=== PATIENT | female | born 1995 | race Caucasian/White ===

== ENCOUNTER 2020-10-21 16:05 | Emergency (ER) | payer BC, SELFPAY ==
--- NOTE | 2020-10-21 16:23 | ED.URI ---
HPI - URI/Sore Throat General Chief Complaint: Upper Respiratory Infection Stated Complaint: FLI LIKE SYMPTOMS History of Present Illness HPI Narrative: This is a 25-year-old female comes in complaining of a sore throat cough not feeling well and inability to sleep. Patient states that she has costochondritis so she is used to chest pain she has been having some pain when she is taking deep breaths. Patient denies any asthma or shortness of breath. Patient states that she took some NyQuil yesterday Related Data Home Medications Medication Instructions Recorded Confirmed etonogestrel [Nexplanon] 1 implant SUBDERMAL ONCE 10/21/20 10/21/20 Allergies Allergy/AdvReac Type Severity Reaction Status Date / Time ketorolac Allergy Intermediate Rash Verified 10/21/20 16:43 acetaminophen Allergy Mild Hives Verified 10/21/20 16:43 hydrocodone Allergy Mild Hives Verified 10/21/20 16:43 morphine Allergy Mild HIVES Verified 10/21/20 16:43 Review of Systems Review of Systems: Narrative: CONSTITUTIONAL: Denies fever, chills, or sweats. EYES: Denies visual changes, redness, or discharge. ENT: Reports rhinorrhea, congestion, sore throat, or otalgia. CARDIOVASCULAR: Reports s chest pain, palpitations, or edema. RESPIRATORY: Reports cough or dyspnea. GASTROINTESTINAL: Denies abdominal pain, nausea, vomiting, or diarrhea. GENITOURINARY: Denies dysuria or hematuria. SKIN:[Denies rash or itching. MUSCULOSKELETAL:Denies back pain, joint pain, or myalgia. NEUROLOGIC: Denies headache, numbness, or weakness. PSYCHIATRIC:Denies anxiety or depression PMFSH Social History Social History Gender identity (if verbalized by the patient): Female Comments At time as signature, I have reviewed and agree with nursing past medical, social, surgical and family history. Please see nursing chart for further information. There is no relevant family history pertinent to the presenting complaint. Exam Narrative: Exam Narrative: GENERAL:Well-appearing, well-nourished, and in no acute distress. HEAD:Normocephalic, atraumatic. EYES: PERRLA and EOMI. ENT: Nares clear moderate amount, mild rhinorrhea or epistaxis. Mucous membranes moist. Pharyngeal erythema NECK: Supple. CHEST: No respiratory distress. Patient taking shallow breaths unable to hear a lot of air moving HEART: Regular rate and rhythm. No murmur heard. Normal peripheral pulses. ABDOMEN: Soft, nontender, nondistended, normal active bowel sounds. EXTREMITIES: Normal range of motion. No edema. SKIN: Warm, dry, no rash. NEURO: No focal deficits. Alert and oriented x3. Course Vital Signs Vital signs: Vital Signs Temperature 98.2 F 10/21/20 16:37 Pulse Rate 98 10/21/20 16:37 Respiratory Rate 16 10/21/20 16:37 Blood Pressure 133/87 10/21/20 16:37 Pulse Oximetry 98 10/21/20 16:37 Temperature 98.2 F 10/21/20 16:37 Pulse Rate 98 10/21/20 16:37 Respiratory Rate 16 10/21/20 16:37 Blood Pressure 133/87 10/21/20 16:37 Pulse Oximetry 98 10/21/20 16:37 MDM - URI/Sore Throat MDM Narrative Medical decision making narrative: Strep negative, influenza negative, Covid negative Differential Diagnosis Differential diagnosis: Likely upper respiratory infection, sinusitis, viral infection, influenza and pharyngitis Lab Data Labs: Lab Results 10/21/20 Range/Units 16:38 POC SARS CoV-2 Ag Negative (Negative) Influenza A Screen Negative Reference Range: Negative Influenza B Screen Negative Reference Range: Negative Discharge Plan Discharge Clinical Impression: Suspected 2019 novel coronavirus infection Patient Disposition: Home, Self-Care Condition: Stable Instructions: Antibiotic Form, COVID-19 (Coronavirus Disease 2019) (ED), Face Coverings (Masks) and COVID-19 (ED) Additional Instructions: Covid discharge
[2020-10-21 16:37] VITALS: BP 133/87; PULSE 98; RESP 16; TEMP 36.8; O2SAT 98
== END 2020-10-21 17:10 | disposition home or self-care (01) ==
PROVIDERS: Emergency Provider Nurse Practitioner Family; PCP Physician Assistant
DX: Z20.822 Contact with and (suspected) exposure to COVID-19 (principal)
CPT/HCPCS: 87426; 87804; 99213; C9803; G0463

== ENCOUNTER 2020-10-22 09:37 | Outpatient (NON) | payer BC, SELFPAY ==
[2020-10-22 22:24] LABS: SARS-CoV-2 RNA PCR Negative
== END 2020-10-22 09:38 ==
PROVIDERS: Family Provider Family Medicine Adolescent Medicine; PCP Physician Assistant; Visit Provider Nurse Practitioner Family
DX: R68.89 Other general symptoms and signs (principal); Z20.822 Contact with and (suspected) exposure to COVID-19
CPT/HCPCS: C9803; U0003; U0005

== ENCOUNTER 2022-09-14 08:12 | Emergency (ER) | payer OTHER, SELFPAY ==
[2022-09-14 08:22] VITALS: BP 126/73; PULSE 117; RESP 16; TEMP 35.9; O2SAT 99
--- NOTE | 2022-09-14 08:39 | ED.URI ---
HPI - URI/Sore Throat General Chief Complaint: Upper Respiratory Infection Stated Complaint: Sore Throat, Headache, Cough Time Seen by Provider: 09/14/22 08:39 Source: patient and RN notes reviewed Mode of arrival: ambulatory Limitations: no limitations History of Present Illness HPI Narrative: 27-year-old female presenting for complaint of headache, sinus pressure/congestion, cough, fever/chills. Onset yesterday. Endorses rib pain and sore throat with coughing. She denies sick contacts. She denies shortness of breath, wheezing, nausea vomiting, diarrhea. She has not taken anything for symptoms. MD elicited complaint: cough Related Data Home Medications Medication Instructions Recorded Confirmed etonogestrel 68 mg subdermal 1 implant subdermal ONCE 10/21/20 09/14/22 implant (Nexplanon) Allergies Allergy/AdvReac Type Severity Reaction Status Date / Time ketorolac Allergy Intermediate Rash Verified 09/14/22 08:30 acetaminophen Allergy Mild Hives Verified 09/14/22 08:30 hydrocodone Allergy Mild Hives Verified 09/14/22 08:30 morphine Allergy Mild HIVES Verified 09/14/22 08:30 Review of Systems Review of Systems: ROS per [facility] Social History Social History Gender identity (if verbalized by the patient): Female Exam Narrative: GENERAL: Ill-appearing, nontoxic EYES: PERRLA, conjunctivae clear ENT: Mucous membranes moist. TMs pearly cohen with dull light reflex bilaterally; no tragal tenderness. Oropharynx erythematous without lesions or exudate CHEST: Clear to auscultation, breath sounds equal. No wheezing, rhonchi, rales, or stridor. No respiratory distress, speaks in full sentences. HEART: Regular rate and rhythm. SKIN: Warm, dry, no rash. NEURO: Alert and oriented x3. Course Course Emergency Course: Patient is aware of diagnosis, understands and agrees to treatment plan. Anticipatory guidance given. Patient agrees to follow-up as directed and is aware of reasons to seek care at the emergency department. Portions of this record may have been created with voice recognition software Level of Care: Express Care Visit Vital Signs Vital signs: Vital Signs Temperature 96.6 F L 09/14/22 08:22 Pulse Rate 117 H 12/15/22 08:22 Respiratory Rate 16 09/14/22 08:22 Blood Pressure 126/73 09/14/22 08:22 Pulse Oximetry 99 09/14/22 08:22 Oxygen Delivery Room Air 09/14/22 08:22 Temperature 96.6 F L 09/14/22 08:22 Pulse Rate 117 H 09/14/22 08:22 Respiratory Rate 16 09/14/22 08:22 Blood Pressure 126/73 09/14/22 08:22 Pulse Oximetry 99 09/14/22 08:22 Oxygen Delivery Room Air 09/14/22 08:22 reviewed MDM - URI/Sore Throat MDM Narrative Medical decision making narrative: Influenza positive. Results reviewed with patient. Advised supportive measures and signs/symptoms to go to the ER. Pt is appropriate for outpt treatment and f/u. Differential Diagnosis Differential diagnosis: Likely upper respiratory infection, sinusitis, viral infection, influenza and pharyngitis Discharge Plan Discharge Clinical Impression: Influenza Patient Disposition: Home, Self-Care Condition: Stable Instructions: Influenza (ED) Additional Instructions: Influenza positive You should avoid crowds until you are fever free for 24 hours without the use of fever reducing medications, or the symptoms are improved Rest. Drink plenty of fluids. Tylenol and Motrin every 8 hours as needed for pain/fever Recommend Flonase spray and Zyrtec (or Claritin/Isis) for sinus pressure/congestion over the counter Cough syrup may cause drowsiness; avoid driving or take it at night time. Follow up with your primary care provider as needed in 1-2 weeks Go to the ER for worsening symptoms or concerns Prescriptions: No Action Nexplanon 68 mg Implant 1 implant SUBDERMAL ONCE Follow-up/Referrals: Tj,GENESIS Bell [Primary Ca
== END 2022-09-14 08:51 | disposition home or self-care (01) ==
PROVIDERS: Emergency Provider Nurse Practitioner Family; PCP Physician Assistant
DX: J10.1 Influenza due to other identified influenza virus with other respiratory manifestations (principal)
CPT/HCPCS: 87804; 99213; G0463

== ENCOUNTER 2024-02-10 12:19 | Emergency (ER) | payer OTHER, SELFPAY ==
[2024-02-10 12:37] VITALS: BP 125/71; PULSE 87; RESP 14; TEMP 36.6; O2SAT 100
--- NOTE | 2024-02-10 12:53 | ED.GENADULT ---
HPI - General Adult General Chief complaint: Upper Respiratory Infection Stated complaint: sorethroat,cough Source: patient Mode of arrival: ambulatory Limitations: no limitations History of Present Illness HPI narrative: Patient presents for evaluation of sick symptoms for last 2 days. Symptoms include sinus congestion, headache, and cough. She states that it hurts to swallow. She had hot flashes and chills yesterday. No recent sick contacts to her knowledge. she is not taking any medications to assist with her symptoms. She does not smoke Related Data Home Medications Medication Instructions Recorded Confirmed etonogestrel 68 mg subdermal 1 implant subdermal ONCE 10/21/20 02/10/24 implant (Nexplanon) Allergies Allergy/AdvReac Type Severity Reaction Status Date / Time ketorolac Allergy Intermediate Rash Verified 02/10/24 12:24 acetaminophen Allergy Mild Hives Verified 02/10/24 12:24 hydrocodone Allergy Mild Hives Verified 02/10/24 12:24 morphine Allergy Mild HIVES Verified 02/10/24 12:24 Review of Systems Review of Systems: CONSTITUTIONAL: Reports hot flashes and chills. Denies fever. EYES: Denies visual changes, redness, or discharge. ENT: Reports sinus congestion and sore throat. Denies otalgia CARDIOVASCULAR: Denies chest pain, palpitations, or edema. RESPIRATORY: Reports cough. Denies SOB GASTROINTESTINAL: Denies abdominal pain, nausea, vomiting, or diarrhea. GENITOURINARY: Denies dysuria or hematuria. SKIN: Denies rash or itching. MUSCULOSKELETAL: Denies back pain, joint pain, or myalgia. NEUROLOGIC: Denies headache, numbness, dizziness, or weakness. PSYCHIATRIC: Denies anxiety or depression. [facility] Past Medical History Medical History No pertinent past medical history Surgical History Surgical History (Updated 02/10/24 @ 12:59 by KEERTHI Heard, HEIKE) No pertinent past surgical history Family History Family History Mother Family history non-contributory Social History Social History Smoking status: Never smoker Gender identity (if verbalized by the patient): Female Spiritual care concerns: No Exam Narrative: GENERAL: disheveled appearance. Appears acutely ill but nontoxic. HEAD: Normocephalic, atraumatic. EYES: PERRLA and EOMI. ENT: Nares clear, no rhinorrhea or epistaxis. Mucous membranes moist. Oropharynx without tonsillar hypertrophy exudate or other lesions. Bilateral TMs pearly cohen nonbulging NECK: Supple. No adenopathy or masses. No carotid bruits or JVD CHEST: Clear to auscultation. No respiratory distress. No wheezes rales or rhonchi HEART: Regular rate and rhythm. No murmur heard. Normal peripheral pulses. ABDOMEN: Soft, nontender, nondistended, normal active bowel sounds. EXTREMITIES: Normal range of motion. No edema. SKIN: Warm, dry, no rash. NEURO: No focal deficits. Alert and oriented x3. PSYCH: Normal mood and affect. Course Course Emergency Course: This is a 28-year-old female who presented for evaluation of sick symptoms. COVID and influenza negative. Strep positive. Will treat with amoxicillin. Increase hydration. [id number] agents for symptom management. Follow primary provider. Go to the ER for worsening symptoms. Patient in agreement with plan care. Level of Care: Express Care Visit Vital Signs Vital signs: Vital Signs Temperature 36.6 C 02/10/24 12:37 Pulse Rate 87 02/10/24 12:37 Respiratory Rate 14 02/10/24 12:37 Blood Pressure 125/71 02/10/24 12:37 Pulse Oximetry 100 02/10/24 12:37 Oxygen Delivery Room Air 02/10/24 12:37 Temperature 36.6 C 02/10/24 12:37 Pulse Rate 87 02/10/24 12:37 Respiratory Rate 14 02/10/24 12:37 Blood Pressure 125/71 02/10/24 12:37 Pulse Oximetry 100 02/10/24 12:37
== END 2024-02-10 13:00 | disposition home or self-care (01) ==
PROVIDERS: Emergency Provider Nurse Practitioner; PCP Physician Assistant
DX: J02.0 Streptococcal pharyngitis (principal); Z20.822 Contact with and (suspected) exposure to COVID-19
CPT/HCPCS: 87426; 87804; 87880; 99213; G0463

== ENCOUNTER 2024-07-03 10:03 | Emergency (ER) | payer BC, SELFPAY ==
[2024-07-03 10:04] VITALS: BP 130/73; PULSE 92; RESP 19; TEMP 36.6; O2SAT 99
--- NOTE | 2024-07-03 10:24 | ED.URI ---
HPI - URI/Sore Throat General Chief Complaint: Upper Respiratory Infection Stated Complaint: Sinus Time Seen by Provider: 07/03/24 10:19 Source: patient and RN notes reviewed Mode of arrival: ambulatory Limitations: no limitations History of Present Illness HPI Narrative: Patient presents today complaining of a 3 day history of headache, sore throat, congestion, postnasal drip, dry cough and fatigue. She also reports some mild shortness of breath exertion. Denies fever or known sick contacts. She has been taking Mucinex, Aleve, Tylenol, and allergy medication without relief and currently rates her pain 2/10. No history of asthma or COPD. She is a nonsmoker. Related Data Home Medications Medication Instructions Recorded Confirmed etonogestrel 68 mg subdermal 1 implant subdermal ONCE 10/21/20 07/03/24 implant (Nexplanon) Allergies Allergy/AdvReac Type Severity Reaction Status Date / Time ketorolac Allergy Intermediate Rash Verified 02/10/24 12:24 acetaminophen Allergy Mild Hives Verified 02/10/24 12:24 hydrocodone Allergy Mild Hives Verified 02/10/24 12:24 morphine Allergy Mild HIVES Verified 02/10/24 12:24 Review of Systems Review of Systems: CONSTITUTIONAL: Denies body aches, fever, chills, or sweats.+ fatigue EYES: Denies visual changes, redness, or discharge. ENT: Denies rhinorrhea, or otalgia.+ congestion, sore throat, postnasal drip CARDIOVASCULAR: Denies chest pain, palpitations, or edema. RESPIRATORY: + cough, shortness of exertion GASTROINTESTINAL: Denies abdominal pain, nausea, vomiting, or diarrhea. GENITOURINARY: Denies dysuria or hematuria. SKIN: Denies rash, itching, or wounds. MUSCULOSKELETAL: Denies back pain, joint pain, or myalgia. NEUROLOGIC: Denies numbness, tingling, or weakness.+ headache PSYCH: Denies depression or anxiety. [facility] Past Medical History Medical History No pertinent past medical history Surgical History Surgical History No pertinent past surgical history Family History Family History Mother Family history non-contributory Social History Social History Smoking status: Never smoker Gender identity (if verbalized by the patient): Female Spiritual care concerns: No Comments At time of signature, I have reviewed and agree with nursing past medical, surgical, social and family history unless otherwise noted. Please see nursing chart for further information. There is no relevant family history pertinent to the presenting complaint Exam Narrative: GENERAL: Mildly ill-appearing, well-nourished, and in no acute distress. HEAD: Normocephalic, atraumatic. EYES: EOMI. No redness or drainage. Conjunctivae normal. ENT: Mucous membranes pink and moist. Nares congested with rhinorrhea. TMs normal bilaterally. Throat normal. Uvula midline. NECK: Normal AROM. Supple. No lymphadenopathy. CHEST: No respiratory distress. Clear to auscultation. HEART: Regular rate and rhythm. No murmur appreciated. EXTREMITIES: Normal range of motion. No edema. SKIN: Warm, dry, no rash. Capillary refill normal. Normal skin turgor. NEURO: No focal deficits. Alert and oriented x3. Gait steady. PSYCH: Normal affect. No signs of depression or anxiety. Course Course Level of Care: Express Care Visit Vital Signs Vital signs: Vital Signs Temperature 97.8 F 07/03/24 10:04 Pulse Rate 92 07/03/24 10:04 Respiratory Rate 19 07/03/24 10:04 Blood Pressure 130/73 07/03/24 10:04 Pulse Oximetry 99 07/03/24 10:04 Oxygen Delivery Room Air 07/03/24 10:04 Temperature 97.8 F 07/03/24 10:04 Pulse Rate 92 07/03/24 10:04 Respiratory Rate 19 07/03/24 10:04 Blood Pressure 130/73 07/03/24 10:04 Pulse Oximetry 99
[2024-07-03 10:31] LABS: EDSTREPNEGPOS1 Positive (Negative)
[2024-07-03 10:38] LABS: EDCOVIDSCREEN Positive (Negative); EDINFLUASCREEN Negative (Negative); EDINFLUBSCREEN Negative (Negative)
== END 2024-07-03 10:50 | disposition home or self-care (01) ==
PROVIDERS: Emergency Provider Nurse Practitioner; PCP Physician Assistant
DX: U07.1 COVID-19 (principal); J02.0 Streptococcal pharyngitis
CPT/HCPCS: 87426; 87804; 87880; 99213; G0463